=== PATIENT | male | born 1995 | race African-American/Black ===

== ENCOUNTER 2019-02-21 04:32 | Emergency (ER) | payer SELFPAY ==
[2019-02-21 06:15] LABS: Bacteria/HPF None Seen HPF (None Seen); Bilirubin Negative (Negative); Blood, Urine Negative (Negative); Clarity Clear (Clear); Glucose, Urine (Dipstick) Normal (Negative); Leukocyte 25 Leu/uL (Negative); Nitrite Negative (Negative); Protein, Urine (Dipstick) Negative (Neg-Trace); RBC/HPF 0-3 HPF (0-3); Squamous Epithelial None Seen HPF (0-3)
[2019-02-21 06:20] LABS: Hemoglobin 15.9 g/dL (14.0-18.0); Mean Corpuscular HGB CONC 34.1 g/dL (32.0-36.0); Mean Corpuscular Hemoglobin 29.8 pg (27.0-31.0); Mean Corpuscular Volume 87.2 fL (78.0-98.0); Mean Platelet Volume 7.4 fL (7.4-10.4); Platelet Count 219 thou/uL (130-400); RBC Distribution Width 12.1 % (11.5-14.5); Red Blood Cell (RBC) Count 5.35 mill/uL (4.70-6.10); White Blood Cell (WBC) Count 9.9 thou/uL (4.8-10.8)
[2019-02-21 06:29] LABS: ALT (SGPT) 15 U/L (8-55); AST (SGOT) 11 U/L (5-34); Albumin 4.3 g/dL (3.5-5.0); Alkaline Phosphatase 78 U/L (40-150); Anion Gap 9 mmol/L (10-20); BUN (Urea Nitrogen) 10 mg/dL (8.9-20.6); Bilirubin, Total 1.5 mg/dL (0.2-1.2); Calc. Creatinine Clearance 0 mL/min (70-130); Calcium 9.3 mg/dL (7.8-10.44); Carbon Dioxide 28 mmol/L (22-29); Chloride 104 mmol/L (98-107); Estimated GFR-MDRD Greater than 90; Globulin 2.4 g/dL (2.4-3.5); Glucose 93 mg/dL (70-105); Lipase 17 U/L (8-78); Potassium 3.7 mmol/L (3.5-5.1); Protein, Total 6.7 g/dL (6.0-8.3); Sodium 137 mmol/L (136-145)
[2019-02-21 06:34] LABS: #Basophils 0.1 thou/uL (0.0-0.2); #Eosinphils 0.3 thou/uL (0.0-0.7); #Lymphocytes 3.3 thou/uL (1.20-3.40); #Monocytes 1.3 thou/uL (0.11-0.59); #Neutrophils 4.9 thou/uL (1.40-6.50); %Basophils 1.2 % (0.0-1.0); %Eosinophils 3.3 % (0.0-10.0); %Lymphocytes 33.3 % (21.0-51.0); %Monocytes 12.6 % (0.0-10.0); %Neutrophils 49.6 % (42.0-75.0); Eosinophils 2 % (0-10); Lymphocytes 37 % (21-51); MDiff Complete? YES; Monocytes 10 % (0-10); Neutrophil 51 % (42-75); Platelet Morphology Comment Appears Adequate
--- NOTE | 2019-02-21 09:41 | CT ---
CT OF THE ABDOMEN AND PELVIS WITH IV CONTRAST: INDICATION: History of bilateral mid to lower abdominal pain with nausea and vomiting for 3 days. FINDINGS: Lung bases are clear. There is a 3.6 cm cyst within the superior pole of the spleen. The liver, pancreas, adrenal glands, and kidneys are normal-appearing. No free fluid or enlarged lymph nodes are evident. There is a normal appendix in the right lower quadrant. No free fluid is evident in the pelvis. The bladder is partially decompressed. There is a mild amount of retained stool within the rectum and c olon. The small bowel is of normal caliber. No acute osseous abnormality is evident. IMPRESSION: 1. No definite acute abnormality demonstrated by CT to explain the patient's mid to lower abdominal pain. 2. Incidental note of a 3.6 cm splenic cyst. 3. Mild amount of retained stool within the colon. POS: BH
[2019-02-21] MEDS ORDERED: ISOVUE-370 76%-LOCM 1 ML ONE (13:34)
== END 2019-02-21 06:52 | disposition home or self-care (01) ==
LOC: ERS 04:32
DX: R10.30 Lower abdominal pain, unspecified (principal)
CPT/HCPCS: 36415; 74177; 80053; 81003; 81015; 83690; 85025; Q9966